=== PATIENT | female | born 1985 ===

== ENCOUNTER 2018-11-22 22:57 | Emergency (ER) | payer OTHER ==
[2018-11-22 23:15] VITALS: PULSE 71
[2018-11-22 23:31] LABS: SQUAMOUS EPITHIAL 1 /hpf (0-5); URINE BILIRUBIN NEGATIVE (NEGATIVE); URINE BLOOD NEGATIVE (NEGATIVE); URINE CLARITY Clear (Clear); URINE COLOR Yellow (YELLOW); URINE GLUCOSE (UA) NORMAL (Normal); URINE LEUKOCYTE ESTERASE NEG Leu/uL (Negative); URINE PROTEIN NEGATIVE (NEGATIVE)
[2018-11-22 23:38] LABS: HCG,QUALITATIVE URINE POSITIVE (NEGATIVE)
[2018-11-23 00:27] LABS: BASO % 0.5 % (0.0-2.0); EOS % 0.6 % (0.0-4.0); HEMOGLOBIN 11.2 g/dL (11.0-16.0); LYMPH # 1.2 K/uL (1.0-4.3); LYMPH % 21.5 % (20.0-40.0); MEAN CELL VOLUME 85.9 fL (81.0-99.0); MEAN CORPUSCULAR HEMOGLOBIN 27.5 pg (27.0-31.0); MEAN PLATELET VOLUME 8.7 fL (7.2-11.7); MONO # 0.4 K/uL (0.0-0.8); MONO % 7.6 % (0.0-10.0); NEUT # 3.8 K/uL (1.8-7.0); NEUT % 69.8 % (50.0-75.0); NRBC % 0.1 % (0.0-2.0); RBC 4.07 Mil/uL (3.80-5.20); RED CELL DISTRIBUTION WIDTH 17.4 % (11.5-14.5); WHITE BLOOD COUNT 5.5 K/uL (4.8-10.8)
--- NOTE | 2018-11-23 00:36 | C.PDOC ---
History Of Present Illness 33 year old female, , with PMHx of PCOS presents to the ED c/o sudden onset left sided pelvic pain, which has now reduced. Patient is s/p TOP 4 weeks ago at 6 weeks gestation. Patient has not followed up with PMD of OB since her procedure. Patient also c/o 4 day history of brownish vaginal spotting, reports using 1 pad per day. Patient denies fever, chills, rash, nausea, vomit, diarrhea, back pain. Time Seen by Provider: 11/22/18 23:52 Chief Complaint (Nursing): Abdominal Pain History Per: Patient History/Exam Limitations: no limitations Onset/Duration Of Symptoms: Days Current Symptoms Are (Timing): Still Present Location Of Pain/Discomfort: Suprapubic Radiation Of Pain To:: None Quality Of Discomfort: "Pain" Associated Symptoms: denies: Nausea, Vomiting, Diarrhea, Urinary Symptoms Recent travel outside of the [place]: No Additional History Per: Patient Abnormal Vaginal Bleeding: Yes Last Menstral Period: 11/19/2018 : 5 Para: 2 Past Medical History Reviewed: Historical Data, Nursing Documentation, Vital Signs Vital Signs: Last Vital Signs Temp 98.3 F 11/22/18 23:12 Pulse 71 11/22/18 23:12 Resp 16 11/22/18 23:12 BP 119/75 11/22/18 23:12 Pulse Ox 98 11/22/18 23:12 - Medical History PMH: Anemia Other PMH: PCOS Other Surgeries: TOP 4 weeks ago Family History: States: Unknown Family Hx - Social History Hx Alcohol Use: No Hx Substance Use: No - Immunization History Hx Tetanus Toxoid Vaccination: No Hx Influenza Vaccination: No Hx Pneumococcal Vaccination: No Review Of Systems Constitutional: Negative for: Fever, Chills Respiratory: Negative for: Shortness of Breath Gastrointestinal: Negative for: Nausea, Vomiting, Abdominal Pain Genitourinary: Positive for: Vaginal Bleeding, Pelvic Pain. Negative for: Dysuria, Hematuria, Vaginal Discharge Musculoskeletal: Negative for: Back Pain Neurological: Negative for: Weakness, Numbness, Headache Physical Exam - Physical Exam Appears: Non-toxic, No Acute Distress Skin: Normal Color, Warm, Dry Head: Atraumatic, Normacephalic Eye(s): bilateral: Normal Inspection Neck: Normal ROM, Supple Chest: Symmetrical Cardiovascular: Rhythm Regular Respiratory: Normal Breath Sounds, No Rales, No Rhonchi, No Wheezing Gastrointestinal/Abdominal: Soft, No Tenderness, No Guarding, No Rebound, Other (left sided pelvic tenderness) Extremity: Normal ROM, No Tenderness, No Swelling Neurological/Psych: Oriented x3, Normal Speech, Normal Cognition Gait: Steady ED Course And Treatment - Laboratory Results Result Diagrams: 11/23/18 00:24 11/23/18 00:24 Lab Results: Urine Color Yellow (YELLOW) 11/22/18 23:25 Urine Clarity Clear (Clear) 11/22/18 23:25 Urine pH 7.0 (5.0-8.0) 11/22/18 23:25 Ur Specific [place] 1.014 (1.003-1.030) 11/22/18 23:25 Urine Protein Negative mg/dL (NEGATIVE) 11/22/18 23:25 Urine Glucose (UA) Normal mg/dL (Normal) 11/22/18 23:25 Urine Ketones Negative mg/dL (NEGATIVE) 11/22/18 23:25 Urine Blood Negative (NEGATIVE) 11/22/18 23:25 Urine Nitrate Negative (NEGATIVE) 11/22/18 23:25 Urine Bilirubin Negative (NEGATIVE) 11/22/18 23:25 Urine Urobilinogen 2.0 mg/dL (0.2-1.0) H 11/22/18 23:25 Ur Leukocyte Esterase Neg Milena/uL (Negative) 11/22/18 23:25 Urine WBC (Auto) < 1 /hpf (0-5) 11/22/18 23:25 Urine RBC (Auto) 1 /hpf (0-3) 11/22/18 23:25 Ur Squamous Epith Cells 1 /hpf (0-5) 11/22/18 23:25 Urine HCG, Qual Positive (NEGATIVE) 11/22/18 23:25 Urine HCG, Qual Positive (NEGATIVE) 11/22/18 23:25 O2 Sat by Pulse Oximetry: 98 (ON RA) Pulse Ox Interpretation: Normal - CT Scan/US Pelvic US Other Rad Studies (CT/US): Read By Radiologist, Radiology Report Reviewed CT/US Interpretation: Ultrasound of the pelvis, transvaginal. Indication: History of 4 weeks ago. Left eye pain and bleeding. Technique: Real- time ultrasound images were obtained. Findings: Unremarkable uterus. Normal right ovary. 2 left ovarian hypoechoic cyst are noted measuring 2.4 and 2.1 cm. Endometrium is thickness measuring 7.6 mm. Normal cervical length measuring 4.9 cm. Impression: No intrauterine seen. No evidence of retained products of conception. Hypoechoic left ovarian cysts are noted. No evidence of ovarian torsion. . Electronically signed on Nov 23, 2018 3:26:26 AM EST by: Shahid Burgess M.D., Certified by ABR, MSK, Neuroradiology. Medical Decision Making Medical Decision Making: Plan: * Labs * UA * UcG (+) * ordered pelvic US to rule out ectopic vs cyst 0335 ultrasound results+left ovarian cyst. no ectopic, no ovarian torsion, d/c home with access services representative fu Disposition Counseled Patient/Family Regarding: Studies Performed, Diagnosis, Need For Followup - Disposition Disposition: HOME/ ROUTINE Disposition Time: 03:36 Condition: GOOD Additional Instructions: Tylenol or Motrin for pain if needed. Follow up with ballpoint pens assembler for further evaluation. Return to ER for any worse symptoms. . 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 - Scribe Statement The provider has reviewed the documentation as recorded by the Scribe David Woo All medical record entries made by the Scribe were at my direction and personally dictated by me. I have reviewed the chart and agree that the record accurately reflects my personal performance of the history, physical exam, medi jos[facility] antonio decision making, and the department course for this patient. I have also personally directed, reviewed, and agree with the discharge instructions and disposition.
[2018-11-23 00:41] LABS: ALB/GLOB RATIO 1.9 (1.0-2.1); ALT/SGPT 13 U/L (9-52); AST/SGOT 15 U/L (14-36); BLOOD UREA NITROGEN 16 mg/dL (7-17); CALCIUM 8.3 mg/dl (8.6-10.4); GFR NON-AFRICAN AMERICAN > 60
[2018-11-23 02:54] VITALS: BP 100/63; RESP 20; TEMP 98
[2018-11-23 03:28] VITALS: O2SAT 98
--- NOTE | 2018-11-23 12:16 | US ---
Date of service: 11/23/2018 HISTORY: lmp 10 w ago, top 4 weeks ago, left pelvic pain COMPARISON: None available. TECHNIQUE: Real-time transabdominal pelvic ultrasound was performed. In addition a transvaginal pelvic ultrasound was necessary to better depict pelvic anatomy. FINDINGS: UTERUS: Measures 10.1 x 5.9 x 7.1 cm. Anteverted. ENDOMETRIUM: Measures 8 mm in diameter. CERVIX: Cervix length measures approximately 4.8 cm. RIGHT OVARY: Measures 3.2 x 2.2 x 2.0 cm. Blood flow is demonstrated. LEFT OVARY: Measures 5.3 x 2.8 x 4.5 cm. Blood flow is demonstrated. Complex appearing follicle/cyst measuring maximally 2.4 cm and 2.2 cm, possibly hemorrhagic. FREE FLUID: Small pelvic free fluid. OTHER FINDINGS: None. IMPRESSION: Complex appearing follicles/cysts within the left ovary, possibly hemorrhagic. Small pelvic free fluid. Preliminary impression was provided by [employer].
== END 2018-11-23 03:52 | disposition home or self-care (01) ==
LOC: C.ER 22:57
DX: N83.202 Unspecified ovarian cyst, left side (principal)